=== PATIENT | male | born 1960 | race Caucasian/White ===

== ENCOUNTER 2016-07-23 05:48 | Day surgery (SDC) | payer OTHER ==
[2016-07-22 09:46] VITALS: BMI 27.5
--- NOTE | 2016-07-22 12:26 | PREOPHP ---
DATE OF ADMISSION: 07/23/2016 DATE OF ADMISSION: 07/23/2016 HISTORY OF PRESENT ILLNESS: This 55-year-old patient is admitted for elective cataract surgery of t he left eye. The patient has had progressive deterioration of vision in that eye over the past year 's time. The patient also underwent cataract surgery of the right eye in April 2015 with good vi sual result. The patient's systemic history is positive for myasthenia gravis, systemic hypertensio n, COPD, and Graves' disease. CURRENT MEDICATIONS: Include: 1. Levothyroxine. 2. Metoprolol. 3. Benazepril. 4. Ventolin. 5. [place]. 6. Percocet. ALLERGIES: THE PATIENT IS ALLERGIC TO MORPHINE. PHYSICAL EXAMINATION: The visual acuity best corrected is 20/25 in the right eye and 20/60 in the l eft eye. Slit lamp examination reveals a posterior chamber intraocular lens in the right eye and a nuclear sclerotic and posterior subcapsular cataract in the left eye. Applanation tonometry is 20 m mHg in the left eye. Examination of the retina appears within normal limits. DIAGNOSIS: Cataract, left eye. PLAN: Cataract extraction with lens implant, left eye. The risks and alternatives to the surgery h ave been discussed with the patient and patient desires to proceed with surgery in the hopes of impr oving visual acuity leading to a greater ability to perform activities of daily living. Dictated By: ALBER CARRINGTON/CATHERINE Conf#: [id number] DID#: [id number]
[~2016-07-23] VITALS: Ht 165.1 cm; Wt 75.0 kg
[2016-07-23] VITALS (10 sets, daily range): BP systolic 142–163; BP diastolic 80–93; PULSE 50–58; RESP 12–20; Ht 165.1 cm; Wt 75.0 kg
[~2016-07-23 05:48] MED LIST: ALBU18HF IH; CIPROFLOXACIN 0.3% 2.5 ML OPH OPER SCH; CYCLOPENTOLATE/PHENYLEPH 2 ML OPH OPER SCH; DICLOFENAC 0.1% 2.5 ML OPH OPER SCH; HYDR-3498 PO; LORA10TA3 PO; METO25TA4 PO; MOME13HF2 IH; PYRI60TA PO; SYN112 PO; TROPICAMIDE 1% 2 ML OPH OPER SCH
--- NOTE | 2016-07-23 08:00 | RADRPT ---
PROCEDURE: Chest 1 views. CLINICAL INDICATION: Abnormal breath sounds, preop. TECHNIQUE: AP views of the chest were obtained. COMPARISON: None. FINDINGS: The heart is large. Lungs are hyperexpanded. Subsegmental atelectasis is seen at the right lung bas e. No consolidations are identified. No pneumothorax is seen. Osseous structures are intact. IMPRESSION: Cardiomegaly . Hyperexpanded lungs. Subsegmental atelectasis at the right lung base. RPTAT: AA .Gautam Lisa MD, MD Date Time Electronically viewed and signed by .Gautam Lisa MD, on 07/23/2016 07:59 .P/
[2016-07-23] MEDS ORDERED: LIDOCAINE 4% (MPF) 5 ML INJ ONE (08:08)
[2016-07-23] MEDS ORDERED: CARBACHOL 0.01% 1.5 ML OPH INJ ONE (08:08)
[2016-07-23] MEDS ORDERED: HYALURONATE/CHONDROITIN 1ML OPH INJ ONE (08:08)
[2016-07-23] MEDS ORDERED: DEXAMETHASONE 4 MG/ML 1 ML INJ ONE (08:08)
[2016-07-23] MEDS ORDERED: PROPOFOL 20 ML ONE (08:16)
[2016-07-23] MEDS ORDERED: ONDANSETRON 4 MG INJ IV PRN (09:00)
[2016-07-23] MEDS ORDERED: hydrALAzine 20 MG INJ IV PRN (09:00)
[2016-07-23] MEDS ORDERED: FENTAnyl 50 MCG/ML VIAL IV PRN ×2 (09:00)
[2016-07-23] MEDS ORDERED: LABETALOL HCL 20MG INJ IV PRN (09:00)
[2016-07-23] MEDS ORDERED: MEPERIDINE 25 MG INJ IV PRN (09:00)
[2016-07-23] MEDS ORDERED: CEFAZOLIN 1 GM INJ INJ ONE (09:39)
--- NOTE | 2016-07-23 12:27 | OPR ---
DATE OF OPERATION: 07/23/2016 PREOPERATIVE DIAGNOSIS: Cataract, left eye. POSTOPERATIVE DIAGNOSIS: Cataract, left eye. OPERATION PERFORMED: Cataract extraction with lens implant, left eye. SURGEON: Alber Drew MD ANESTHESIA: Local standby. ANESTHESIOLOGIST: Dr. Francois. PROCEDURE: The patient was brought to the operating room and placed on the table with an IV in plac e and the patient attached to an graphics edit technician. Oxygen was given via face mask. After some intravenous sedation was administered, local anesthesia was given using Xylocaine 2% with epinephrine, mixed with Marcaine 0.5%. This was given in a lid block and retrobulbar injection. The patient was then prepped and draped in the usual sterile manner. A wire lid speculum was inserted between the lids of the left eye. A Superblade was used to enter th e anterior chamber at the corneoscleral limbus at the 10:30 o'clock position. A separate incision wa s made using a 3.0-mm keratome which entered the corneoscleral junction at the 12 o'clock position. Through this 3-mm opening, an irrigating cystotome was introduced into the anterior chamber. The irvin mber was filled with Viscoat and an anterior capsulotomy was performed. Balanced salt solution was t hen used for hydrodissection of the lens. A phacoemulsification handpiece was then brought into the field and introduced into the anterior chamber. The lens nucleus was emulsified using a deep groove and cracking the nucleus into quadrants. Following this, each quadrant was aspirated and emulsified at the pupillary margin. After this was completed, the irrigation/aspiration handpiece was brought to the field, introduced i nto the posterior chamber, and the lens cortical material was removed. When this was completed, radha tional Viscoat was injected into the anterior and posterior chambers. The 3-mm opening had its internal lips enlarged, and then the posterior chamber intraocular lens domitila suring 18.0 diopters (Bausch and Lomb model LI61AO) was then injected into the posterior chamber usi ng the lens injector system. After the leading haptic was introduced into the capsular bag and the l ens optic was present in the center of the eye, the injector was removed and the trailing haptic was grasped with non-toothed forceps and introduced into the capsular fold superiorly. A [place] hook w as then used to rotate the intraocular lens so that the lips were oriented in the horizontal meridia n. One 10-0 nylon suture was placed across the wound. Prior to tying, the irrigation/aspiration handpiece was reintroduced into the anterior chamber to re move the Viscoat. Miochol was instilled to constrict the pupil, and then the 10-0 nylon suture was t ied. The ends were cut short and then the knot was buried. Then, 0.5 mL of dexamethasone and 0.5 mL of Ancef were injected into the sub-Tenon space in the infe rior fornix. Ciloxan drops were then placed on the surface of the eye. The speculum was removed and a patch was applied. The patient then left the operating room in satisfactory condition. Dictated By: ALBER CARRINGTON/CATHERINE Conf#: [id number] DID#: [id number]
== END 2016-07-23 10:50 | disposition home or self-care (01) ==
LOC: SDS 05:48
PROVIDERS: ATTEND Ophthalmology
DX: H25.12 Age-related nuclear cataract, left eye (principal); E03.9 Hypothyroidism, unspecified; I10 Essential (primary) hypertension
CPT/HCPCS: 66984; 71010; J0690; J1100; V2632; Z7512; Z7610